=== PATIENT | male | born 1980 | race Caucasian/White ===

== ENCOUNTER 2018-08-15 23:07 | Emergency (ER) | payer OTHER ==
[~2018-08-15] VITALS: Ht 182.9 cm; Wt 90.7 kg
[2018-08-15 23:15] VITALS: Ht 182.9 cm; Wt 90.7 kg
[2018-08-16 00:12] LABS: CALCIUM 9.3 mg/dL (8.5-10.1); CARBON DIOXIDE 23.9 mmol/L (21-32); CHLORIDE SERUM 102 mmol/L (98-107); GFR1 > 60 mL/min; GLUCOSE SERUM 119 mg/dL (74-106); POTASSIUM SERUM 3.6 mmol/L (3.5-5.1); SODIUM SERUM 140 mmol/L (136-145)
[2018-08-16 00:16] LABS: BASOPHIL % 0 % (0-2); PLATELET COUNT 234 x10^3mcL (130-400); RED CELL DISTRIBUTION WIDTH 12.6 % (11.5-14.5)
[2018-08-16 00:21] LABS: UA SPECIFIC GRAVITY >=1.030 (1.005-1.035); microscopic required? YES; urine erythrocyte NEGATIVE (NEGATIVE)
[2018-08-16 00:26] LABS: ALBUMIN 4.3 g/dL (3.4-5.0); ALKALINE PHOSPHATASE 56 U/L (46-116); ALT/SGPT 50 U/L (16-63); AST/SGOT 81 U/L (15-37); FREE T4 1.38 ng/dL (0.76-1.46); LIPASE 87 IU/L (73-393); TOTAL PROTEIN, SERUM 8.2 g/dL (6.4-8.2)
[2018-08-16 00:56] LABS: AMPHETAMINE QUAL UR POSITIVE (See below)
[2018-08-16 05:03] VITALS: BP 122/88
== END 2018-08-16 05:41 | disposition home or self-care (01) ==
LOC: ED 23:07
PROVIDERS: Emergency Medicine
DX: T43.621A Poisoning by amphetamines, accidental (unintentional), initial encounter (principal); Y92.89 Other specified places as the place of occurrence of the external cause
CPT/HCPCS: 84439; G0480; J2060; J7030